=== PATIENT | male | born 1960 | race Two or more races ===

== ENCOUNTER 2018-03-27 08:25 | Emergency (ER) | payer MEDICAID, OTHER ==
[~2018-03-27] VITALS: Ht 177.8 cm; Wt 85.2 kg
[~2018-03-27 08:25] MED LIST: ALBU18HF INH
[2018-03-27 09:49] LABS: BASOPHILS # (AUTO) 0.03 x10^3/uL (0-0.1); BASOPHILS % (AUTO) 1 % (0-1); EOSINOPHILS # (AUTO) 0.01 x10^3/uL (0-0.4); EOSINOPHILS % (AUTO) 0 % (1-7); LYMPHOCYTES % (AUTO) 36 % (22-44); MD NO; MEAN CORPUSCULAR HEMOGLOBIN 29.5 pg (27.5-34.5); MEAN CORPUSCULAR HGB CONC 34.3 g/dL (33.2-36.2); MEAN CORPUSCULAR VOLUME 86.2 fL (81-97); MEAN PLATELET VOLUME 8.1 fL (7.4-10.4); MONOCYTES # (AUTO) 0.39 x10^3/uL (0.2-0.8); MONOCYTES % (AUTO) 7 % (2-9); NEUTROPHILS # (AUTO) 3.33 x10^3/uL (1.8-6.8); NEUTROPHILS % (AUTO) 57 % (42-75); PLATELET COUNT 279 x10^3/uL (130-400); RED BLOOD COUNT 5.03 x10^6/uL (4.38-5.82); RED CELL DISTRIBUTION WIDTH 12.8 % (9.4-14.8)
[2018-03-27 09:58] LABS: ALBUMIN 3.5 g/dL (3.4-5.0); ANION GAP 7 mmol/L (5-15); CALCIUM 8.5 mg/dL (8.5-10.1); CHLORIDE 103 mmol/L (98-107); CREATININE 1.01 mg/dL (0.7-1.3)
[2018-03-27] MEDS ORDERED: FLUCONAZOLE 100 MG TABLET PO ONE (10:30)
[2018-03-27] MEDS ORDERED: FLUCONAZOLE 100 MG TABLET ONE (10:38)
[2018-03-27 10:45] VITALS: BP 144/97
== END 2018-03-27 10:45 ==
LOC: ED 09:56
DX: E11.65 Type 2 diabetes mellitus with hyperglycemia (principal); I10 Essential (primary) hypertension; B37.42 Candidal balanitis; Z72.9 Problem related to lifestyle, unspecified
CPT/HCPCS: 36415; 80048; 82040; 85025; 93005; 99285

== ENCOUNTER 2018-05-13 09:14 | Emergency (ER) | payer OTHER ==
[~2018-05-13] VITALS: Ht 180.3 cm; Wt 87.0 kg
[2018-05-13 09:20] VITALS: BP 132/90
[2018-05-13] MEDS ORDERED: CYCLOBENZAPRINE 10 MG TABLET ONE (09:56)
[2018-05-13] MEDS ORDERED: IBUPROFEN 200 MG TABLET ONE (09:56)
[2018-05-13] MEDS ORDERED: CYCLOBENZAPRINE 10 MG TABLET PO ONE (10:00)
[2018-05-13] MEDS ORDERED: IBUPROFEN 200 MG TABLET PO ONE (10:00)
== END 2018-05-13 10:07 | disposition home or self-care (01) ==
LOC: ED 10:00
DX: M54.5 Low back pain (principal); I10 Essential (primary) hypertension; E78.5 Hyperlipidemia, unspecified; E11.65 Type 2 diabetes mellitus with hyperglycemia; Z88.0 Allergy status to penicillin
CPT/HCPCS: 99283

== ENCOUNTER 2020-10-13 23:38 | Emergency (ER) | payer OTHER ==
[~2020-10-13] VITALS: Ht 177.8 cm; Wt 87.5 kg
--- NOTE | 2020-10-13 23:47 | NUR ---
SANG JUNIOR [phone] DAUGHTER
[2020-10-14] MEDS ORDERED: ONDANSETRON ODT 4 MG ONE (00:16)
[2020-10-14] MEDS ORDERED: MAALOX/HYOSCYAMINE/LIDOCAINE 45 ML BTL ONE (00:16)
[2020-10-14 00:25] LABS: BASOPHILS % (AUTO) 1 % (0-1); EOSINOPHILS % (AUTO) 0 % (1-7); LYMPHOCYTES % (AUTO) 33 % (22-44); MEAN CORPUSCULAR HEMOGLOBIN 29.4 pg (27.5-34.5); MEAN CORPUSCULAR HGB CONC 34.4 g/dL (33.2-36.2); MONOCYTES % (AUTO) 6 % (2-9); NEUTROPHILS % (AUTO) 60 % (42-75); PLATELET COUNT 278 x10^3/uL (130-400); RED BLOOD COUNT 4.75 x10^6/uL (4.38-5.82)
[2020-10-14 00:30] LABS: MD NO
[2020-10-14] MEDS ORDERED: MAALOX/HYOSCYAMINE/LIDOCAINE 45 ML BTL PO ONE (00:30)
[2020-10-14] MEDS ORDERED: ONDANSETRON ODT 4 MG PO ONE (00:30)
[2020-10-14 00:34] LABS: ALANINE AMINOTRANSFERASE 29 U/L (12-78); ALBUMIN 3.6 g/dL (3.4-5.0); ANION GAP 10 mmol/L (5-15); CALCIUM 8.7 mg/dL (8.5-10.1); CHLORIDE 101 mmol/L (98-107); CREATININE 1.58 mg/dL (0.7-1.3)
[2020-10-14 00:38] LABS: ALKALINE PHOSPHATASE 121 U/L (45-117); BILIRUBIN,TOTAL 0.3 mg/dL (0.2-1.0); TOTAL PROTEIN 6.8 g/dL (6.4-8.2); TROPONIN I < 0.015 ng/mL (0.000-0.045)
--- NOTE | 2020-10-14 01:21 | NUR ---
Pt states feeling better. C/o dizziness at times. Pt to BR without difficulty.
[2020-10-14 01:28] VITALS: BP 150/90
--- NOTE | 2020-10-14 01:49 | NUR ---
Pt dc'd with written and verbal instructions. Pt states feeling better. Pt dressed, and home with all belongings. Pt Ambulatory out of ED without difficulty and home with a ride.
== END 2020-10-14 01:52 | disposition home or self-care (01) ==
LOC: ED 10-14 00:30
DX: R06.00 Dyspnea, unspecified (principal); K21.00 Gastro-esophageal reflux disease with esophagitis, without bleeding; I10 Essential (primary) hypertension; E11.9 Type 2 diabetes mellitus without complications; R07.9 Chest pain, unspecified
CPT/HCPCS: 36415; 71045; 80053; 84484; 85025; 93005; 99285; Q0162